=== PATIENT | female | born 1935 | race Hispanic/Latino ===

== ENCOUNTER 2020-01-13 10:35 | Inpatient (IN) | payer OTHER ==
[~2020-01-13] VITALS: Ht 157.5 cm; Wt 56.4 kg
[2020-01-13 11:13] LABS: BASOPHILS # (AUTO) 0.1 (0.0-0.1); BASOPHILS % 1.4 % (0.0-1.0); EOSINOPHILS # (AUTO) 0.4 (0.0-0.4); EOSINOPHILS % 6.6 % (0.0-6.0); HEMATOCRIT 32.2 % (34.2-44.1); LYMPHOCYTES # (AUTO) 1.9 (1.0-3.2); LYMPHOCYTES % 31.9 % (18.0-39.1); MEAN CORPUSCULAR HEMOGLOBIN 25.9 pg (28-32); MEAN CORPUSCULAR HGB CONC 31.1 g/dL (31-35); MEAN CORPUSCULAR VOLUME 83.4 fL (81-99); MONOCYTES # (AUTO) 0.4 (0.2-0.8); MONOCYTES % 6.8 % (4.4-11.3); NEUTROPHILS # (AUTO) 3.1 (2.1-6.9); PLATELET COUNT 309 x10e3/uL (140-360); RED BLOOD COUNT 3.86 x10e6/uL (3.6-5.1); RED CELL DISTRIBUTION WIDTH 16.2 % (11.7-14.4)
[2020-01-13 11:31] LABS: INR 0.96; PARTIAL THROMBOPLASTIN TIME 26.8 seconds (23.8-35.5); PROTHROMBIN TIME 13.3 seconds (11.9-14.5)
[2020-01-13 11:40] LABS: ALANINE AMINOTRANSFERASE 15 IU/L (0-55); ALBUMIN 4.2 g/dL (3.5-5.0); ALBUMIN/GLOBULIN RATIO 1.2 (0.8-2.0); ALKALINE PHOSPHATASE 118 IU/L (40-150); ANION GAP 15.2 mmol/L (8-16); BLOOD UREA NITROGEN 20 mg/dL (7-26); BUN/CREATININE RATIO 20 (6-25); CALCIUM 9.7 mg/dL (8.4-10.2); CARBON DIOXIDE 28 mmol/L (22-29); CHLORIDE 99 mmol/L (98-107); CREATINE KINASE 26 IU/L (29-168); CREATININE, SERUM 0.98 mg/dL (0.57-1.11); EST GLOMERULAR FILTRATION RATE 54 ML/MIN (60-); GLUCOSE 96 mg/dL (74-118); LIPASE 9 U/L (8-78); POTASSIUM 4.2 mmol/L (3.5-5.1); SODIUM 138 mmol/L (136-145)
[2020-01-13 11:57] LABS: CLARITY,URINE CLEAR (CLEAR); COLOR,URINE YELLOW (YELLOW); LEUKOCYTE ESTERASE ,URINE TRACE (NEGATIVE); NITRITE,URINE POSITIVE (NEGATIVE)
[2020-01-13 11:58] LABS: BILIRUBIN,URINE NEGATIVE (NEGATIVE); KETONES,URINE NEGATIVE (NEGATIVE); PROTEIN,URINE DIPSTICK TRACE (NEGATIVE); URINE UROBILINOGEN 0.2 mg/dL (0.2 - 1)
[2020-01-13] MEDS ORDERED: SODIUM CHLORIDE 0.9% 500ML 500 ML IV ONE (12:00)
[2020-01-13 12:10] LABS: BACTERIA,URINE MANY /HPF; EPITHELIAL CELLS,URINE FEW /LPF
[2020-01-13] MEDS ORDERED: CEFTRIAXONE SOD 1 GM VIAL IV ONE (12:30)
[2020-01-13] MEDS ORDERED: CEFTRIAXONE SOD 1 GM/NS 50 ML 50 ML IV ONE (12:45)
--- NOTE | 2020-01-13 13:40 | Diagnostic Imaging Report ---
Exam: Chest radiograph Clinical History: GI bleed Findings: The cardiomediastinal silhouette and lungs are normal. The regional skeleton and soft tissue are unremarkable. There is no evidence of pleural effusion or pneumothorax. Impression: No radiographic evidence of acute cardiopulmonary disease. Signed by: Dr. Roderick Leon MD on 01/13/2020 1:37 PM
--- NOTE | 2020-01-13 13:51 | Diagnostic Imaging Report ---
Exam: CT abdomen and pelvis Clinical history: Abdominal pain Technique: Helical images of the abdomen and pelvis were obtained after IV contrast demonstration DOSE REDUCTION: The exams was performed according to the departmental dose-optimization program which includes automated exposure control, adjustment of the mA and/or kV according to patient size and/or use of iterative reconstruction technique. Findings: The lung bases are clear. There is no evidence of pleural effusion. The cardiac size is within normal limits. A nonspecific 5 mm hypodense lesion is noted in the right hepatic lobe adjacent to the gallbladder. This too small to be characterized and may represent a cyst. The spleen, pancreas, adrenal glands, and left kidney are unremarkable. A 1.4 cm hypodense lesion is seen in the interpolar region right kidney most compatible with a cyst. The small and large bowels are normal in caliber without evidence of obstruction. The colon is mildly prominent containing air. The appendix is normal in caliber. The bladder and uterus are unremarkable. The ovaries are not well seen. There is no evidence of lymphadenopathy or free fluid. The aorta and IVC are normal in caliber. Degenerative changes are noted throughout the lumbar spine. Impression: 1. Small right renal cyst. 2. Subcentimeter hypodense lesion in the liver, too small to be characterized. 3. Degenerative changes of the lumbar spine. 4. Mildly prominent air-filled colon without evidence of obstruction. Signed by: Dr. Roderick Leon MD on 01/13/2020 1:49 PM
[2020-01-13] MEDS ORDERED: ONDANSETRON HCL INJ 2MG/ML 2ML 2 MG/ML VIAL IV PRN (14:30)
[2020-01-13] MEDS ORDERED: IOPAMIDOL 370 MG/ML 200 ML INFUS..BTL INJ ONE (14:49)
[2020-01-13] MEDS ORDERED: SODIUM CHLORIDE 0.9% 50ML 50 ML ONE (14:49)
--- OUTSIDE RECORDS SUMMARY | 2020-01-13 15:14 | XMS REPORT ---
Author Author [facility] Address Unknown Phone Unavailable Care Team Providers Care Die Cleaner Name Role Phone Shantelle STALLWORTH Unavailable Unavailable Problems This patient has no known problems. Allergies, Adverse Reactions, Alerts This patient has no known allergies or adverse reactions. Medications This patient has no known medications. Encounters Start Date/Time End Date/Time Encounter Type Admission Type Attending Clinicians Care Facility Care Department Encounter ID 2019-05-16 19:30:00 2019-05-16 19:30:00 Emergency E [facility] [id number] Results Test Description Test Time Test Comments Text Results Atomic Results Result Comments CT ABDOMEN/PELVIS W 2020-01-13 13:42:00 [place] [address] Patient Name: SHUN KYLE V MR #: [id number] : 1935 Age/Sex: 84/F Req #: [id number] Adm Physician: Ordered by: CHRISTINA NI NP Report #: [id number] Location: ER Room/Bed: Procedure: [id number] CT/CT ABDOMEN/PELVIS W Exam Date: 01/13/20 Exam Time: 1250 REPORT STATUS: Signed Exam: CT abdomen and pelvis Clinical history: Abd ominal pain Technique: Helical images of the abdomen and pelvis were obtained after IV contrast demonstration DOSE REDUCTION: The exams was performed according to the departmental dose-optimization program which includes automated exposure control, adjustment of the mA and/or kV according to patient size and/or use of iterative reconstruction technique. Findings: The lung bases are clear. There is no evidence of pleural effusion. The cardiac size is within normal limits. A nonspecific 5 mm hypodense lesion is noted in the right hepatic lobe adjacent to the gallbladder. This too small to be characterized and may represent a cyst. The spleen, pancreas, adrenal glands, and left kidney are unremarkable. A 1.4 cm hypodense lesion is seen in the interpolar region right kidney most compatible with a cyst. The small and large bowels are normal in caliber without evidence of obstruction. The colon is mildly prominent containing air. The appendix is normal in caliber. The bladder and uterus are unremarkable. The ovaries are not well seen. There is no evidence of lymphadenopathy or free fluid. The aorta and IVC are normal in caliber. Degenerative changes are noted throughout the lumbar spine. Impression: 1. Small right renal cyst. 2. Subcentimeter hypodense lesion in the liver, too small to be characterized. 3. Degenerative changes of the lumbar spine. 4. Mildly prominent air-filled colon without evidence of obstruction. Signed by: Dr. Roderick Leon MD on 01/13/2020 1:49 PM Dictated By: JAMES LEON MD 1349 Transcribed By: DERECK on 01/13/20 1349 COPY TO: CHRISTINA NI NP CHEST SINGLE (PORTABLE) 2020-01-13 13:37:00 [place] [address] Patient Name: SHUN KYLE V MR #: [id number] : 1935 Age/Sex: 84/F Req #: [id number] Adm Physician: Ordered by: CHRISTINA NI NP Report #: [id number] Location: ER Room/Bed: Procedure: [id number] DX/CHEST SINGLE (PORTABLE) Exam Date: 01/13/20 Exam Time: 1250 REPORT STATUS: Signed Exam: Chest radiograph Clinical History: GI bleed Findings: The cardiomediastinal silhouette and lungs are normal. The regional skeleton and soft tissue are unremarkable. There is no evidence of pleural effusion or pneumothorax. Impression: No radiographic evidence of acute cardiopulmonary disease. Signed by: Dr. Roderick Leon MD on 01/13/2020 1:37 PM Dictated By: JAMES LEON MD 1331 Transcribed By: DERECK on 01/13/20 1337 COPY TO: CHRISTINA NI NP
[2020-01-13] MEDS: MEROPENEM 1GM 100 ML IV SCH ×2 (15:42→22:30)
[2020-01-13] MEDS: SODIUM CHLORIDE FLUSH 10 ML SYR INJ PRN (15:42)
--- NOTE | 2020-01-13 19:31 | NUR ---
Patient arrived to unit from ER with niece at side. Oriented to room and environment. Call light within reach. Bed alarm on and active. Will continue to monitor closely.
[2020-01-13 19:35] VITALS: BP 174/73
[2020-01-13 20:00] VITALS: BP 174/73
[2020-01-13 20:28] VITALS: BP 174/73
[2020-01-13] MEDS ORDERED: MEROPENEM 1GM 100 ML IV SCH (22:00)
[2020-01-13] MEDS ORDERED: SODIUM CHLORIDE 0.9% 250ML 250 ML ONE (22:41)
[2020-01-14] VITALS (8 sets, daily range): BP systolic 126–160; BP diastolic 62–72
--- NOTE | 2020-01-14 03:19 | NUR ---
Patient pulled IV out. Area cleaned and gaze and tape applied. Tolerated well.
[2020-01-14] MEDS ORDERED: METFORMIN HCL500 MG PO (04:04)
[2020-01-14] MEDS ORDERED: FERROUS SULFAT325 MG PO (04:04)
[2020-01-14] MEDS ORDERED: ATORVASTATIN CA10 MG PO (04:04)
[2020-01-14] MEDS ORDERED: LISINOPRIL2.5 MG PO (04:04)
[2020-01-14] MEDS ORDERED: PROAIR HFA INH8.5 GM IH (04:04)
[2020-01-14] MEDS ORDERED: INCRUSE ELLIPTA IH (04:04)
[2020-01-14 06:30] LABS: BASOPHILS # (AUTO) 0.1 (0.0-0.1); BASOPHILS % 0.9 % (0.0-1.0); EOSINOPHILS # (AUTO) 0.4 (0.0-0.4); EOSINOPHILS % 6.5 % (0.0-6.0); HEMATOCRIT 27.5 % (34.2-44.1); HEMOGLOBIN 8.5 g/dL (12.0-16.0); LYMPHOCYTES # (AUTO) 1.3 (1.0-3.2); LYMPHOCYTES % 19.8 % (18.0-39.1); MEAN CORPUSCULAR HEMOGLOBIN 25.8 pg (28-32); MEAN CORPUSCULAR HGB CONC 30.9 g/dL (31-35); MEAN CORPUSCULAR VOLUME 83.3 fL (81-99); MONOCYTES # (AUTO) 0.6 (0.2-0.8); MONOCYTES % 8.7 % (4.4-11.3); NEUTROPHILS # (AUTO) 4.1 (2.1-6.9); NEUTROPHILS % 63.9 % (38.7-80.0); PLATELET COUNT 266 x10e3/uL (140-360); RED CELL DISTRIBUTION WIDTH 16.3 % (11.7-14.4)
[2020-01-14] MEDS: MEROPENEM 1GM 100 ML IV SCH ×3 (06:37→22:14)
[2020-01-14 06:48] LABS: ALANINE AMINOTRANSFERASE 13 IU/L (0-55); ALBUMIN 3.6 g/dL (3.5-5.0); ALBUMIN/GLOBULIN RATIO 1.3 (0.8-2.0); ALKALINE PHOSPHATASE 96 IU/L (40-150); ANION GAP 13.9 mmol/L (8-16); BLOOD UREA NITROGEN 21 mg/dL (7-26); BUN/CREATININE RATIO 28 (6-25); CALCIUM 8.9 mg/dL (8.4-10.2); CARBON DIOXIDE 26 mmol/L (22-29); CHLORIDE 103 mmol/L (98-107); CREATININE, SERUM 0.76 mg/dL (0.57-1.11); EST GLOMERULAR FILTRATION RATE > 60 ML/MIN (60-); GLUCOSE 73 mg/dL (74-118); POTASSIUM 3.9 mmol/L (3.5-5.1); SODIUM 139 mmol/L (136-145)
--- NOTE | 2020-01-14 07:10 | NUR ---
RCD PT AT BED PT IS ALERT AND ORIENTED RESTING ON BED IV PATENT BY SALINE FLUSH BED LOW AND LOCKED CALL LIGHT IN REACH
--- NOTE | 2020-01-14 07:10 | NUR ---
Bedside report and rounds completed with oncoming nurse. Patient in bed resting, call light within reach. No issues or concerns noted.
[2020-01-14 10:40] LABS: THYROID STIMULATING HORMONE 0.788 uIU/mL (0.350-4.940)
--- NOTE | 2020-01-14 14:45 | NUR ---
Visit made by the Spiritual Care Department Pastoral Visitor, Tiana Womack. PV provided ashes for Chuck Sunday. Pastoral Visitor informed pt/family of the scope of Block Sorter Services and availability. KAN BELLA Handle Lathe Operator Spiritual Care Department O: [phone]
--- NOTE | 2020-01-14 18:43 | NUR ---
PT RESTING ON BED BED SIDE REPORT GIVEN TO ONCOMING NURSE
--- NOTE | 2020-01-14 19:30 | NUR ---
REPORT RECEIVED FROM DAY RN. PT ALERT AND ORIENTED X2. RESPIRATIONS EVEN AND UNLABORED. SL 22G IN RT WRIST- FLUSHES EASILY AND SITE HEALTHY. IMPULSIVE AND WILL GET UP TO GO TO BATHROOM WITHOUT CALLING.UP TO BATHROOM WITH ONE ASSIST AND WALKER. UNSTEADY AT TIMES- NEEDS ONE ASSIST. CALL LIGHT WITHIN REACH. BED IN LOW POSITION. BRAKE ON. NONSKID SOCKS ON. NEED STOOL FOR OCCULT BLOOD--NO BM THIS SHIFT.REMAINS ON CONTACT ISOLATION FOR ESBL.
--- NOTE | 2020-01-14 20:39 | Consultation ---
DATE OF CONSULTATION: 01/14/2020 Urology Consultation REASON FOR CONSULTATION: Urinary tract infection that is complicated. HISTORY OF PRESENT ILLNESS: Cristo Sanches is an 84-year-old woman with urinary tract infection. She was admitted with altered mental status and a complicated urinary tract infection. She showed ESBL urinary tract infection. The patient was wearing a diaper, which was confused when she was admitted. She apparently has urinary incontinence and is wearing a diaper at the present time. The patient denies hematuria, dysuria, and urolithiasis. Denies ever seeing a urologist. PAST MEDICAL AND SURGICAL HISTORY: 1. Hypertension. 2. Diabetes mellitus. 3. Asthma. 4. Urinary tract infections. 5. Hyperlipidemia. 6. Macular degeneration. CURRENT MEDICATIONS: Please refer to the MAR. ALLERGIES: NONE KNOWN. SOCIAL HISTORY: The patient quit smoking three years ago. She denies smoking and ethanol drug use. 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 FAMILY HISTORY: Noncontributory to the active urological problems. REVIEW OF SYSTEMS: Discussed as above history of present illness and past medical history, otherwise negative for all systems. PHYSICAL EXAMINATION: GENERAL: Elderly woman, lying in bed, in no apparent distress. She is currently afebrile. VITAL SIGNS: Vital signs are currently stable. ABDOMEN: Soft, nondistended, nontender without costovertebral angle tenderness. Kidneys not palpable without hepatosplenomegaly. No obvious evidence of hernia. GENITOURINARY: The patient is incontinent into a diaper. For the remaining physical examination systems, please refer to the admission history and physical as well as ERT sheet. LABORATORY STUDIES: CT scan of the abdomen and pelvis showed a small right renal cyst, but no other urological abnormalities. Urine culture showing gram-negative rods and sensitivities are pending. White blood cell count is 6450, hemoglobin 8.5, platelets are 266,000. The patient's creatinine is 0.76. Urinalysis significant for 6-10 rbcs, 6-10 wbcs. ASSESSMENT: 1. Anemia. 2. Urinary tract infections. 3. Microhematuria. 4. Right renal cyst. 5. Urinary incontinence. PLAN: 1. Await urine culture and sensitivity, and adjust antibiotics accordingly. 2. Once the patient is on culture-specific antibiotics and ready for discharge, we will plan to follow the patient up in the office for urodynamic test. 3. Ongoing urological followup is recommended on a long-term basis. 4. Cystoscopic examination may be in the patient's future as well. Thank you much for involving us in care of your patient. We will be happy to follow her along with you as well as an outpatient. Zac MD JOSE Randolph/MERY /[id number]
[2020-01-14] MEDS: SODIUM CHLORIDE FLUSH 10 ML SYR INJ PRN (22:14)
[2020-01-15] VITALS (8 sets, daily range): BP systolic 128–150; BP diastolic 59–67
[2020-01-15 05:58] LABS: BASOPHILS # (AUTO) 0.1 (0.0-0.1); BASOPHILS % 1.2 % (0.0-1.0); EOSINOPHILS # (AUTO) 0.5 (0.0-0.4); HEMATOCRIT 27.6 % (34.2-44.1); HEMOGLOBIN 8.4 g/dL (12.0-16.0); LYMPHOCYTES # (AUTO) 1.4 (1.0-3.2); LYMPHOCYTES % 28.5 % (18.0-39.1); MEAN CORPUSCULAR HEMOGLOBIN 25.1 pg (28-32); MEAN CORPUSCULAR HGB CONC 30.4 g/dL (31-35); MEAN CORPUSCULAR VOLUME 82.6 fL (81-99); MONOCYTES # (AUTO) 0.6 (0.2-0.8); MONOCYTES % 11.4 % (4.4-11.3); NEUTROPHILS # (AUTO) 2.3 (2.1-6.9); NEUTROPHILS % 48.7 % (38.7-80.0); PLATELET COUNT 262 x10e3/uL (140-360); RED BLOOD COUNT 3.34 x10e6/uL (3.6-5.1); RED CELL DISTRIBUTION WIDTH 16.2 % (11.7-14.4)
[2020-01-15] MEDS: MEROPENEM 1GM 100 ML IV SCH ×3 (05:59→22:42)
[2020-01-15] MEDS: SODIUM CHLORIDE FLUSH 10 ML SYR INJ PRN (06:00)
[2020-01-15 06:15] LABS: BLOOD UREA NITROGEN 17 mg/dL (7-26); BUN/CREATININE RATIO 23 (6-25); CALCIUM 9.4 mg/dL (8.4-10.2); CARBON DIOXIDE 30 mmol/L (22-29); CHLORIDE 103 mmol/L (98-107); CREATININE, SERUM 0.75 mg/dL (0.57-1.11); EST GLOMERULAR FILTRATION RATE > 60 ML/MIN (60-); GLUCOSE 108 mg/dL (74-118); SODIUM 140 mmol/L (136-145)
--- NOTE | 2020-01-15 06:30 | NUR ---
RT WRIST IV PAINFUL WHEN FLUSH. IV D/C WITH CATHETER INTACT. PRESSURE DRESSING TO RT WRIST - NO BLEEDING NOTED. NEW IV 22G STARTED IN RT FOREARM. PT TOLERATED PROCEDURE WELL.
--- NOTE | 2020-01-15 07:10 | NUR ---
RCD PT AT BED PT IS ALERT AND ORIENTED RESTING ON BED IV PATENT BY SALINE FLUSH BED LOW AND LOCKED CALL LIGHT IN REACH
--- NOTE | 2020-01-15 16:50 | Diagnostic Imaging Report ---
EXAMINATION: CHEST XRAY LINE PLACEMENT INDICATION: Line placement COMPARISON: Chest radiograph 01/13/2020 FINDINGS: LINES/TUBES:Interval placement of right PICC line, terminating in the superior vena cava. LUNGS:The lungs are moderately inflated. No focal consolidation or pulmonary edema. PLEURA:No pleural effusion or pneumothorax. MEDIASTINUM:The cardiomediastinal silhouette appears unchanged in size and shape. Atherosclerotic calcifications of the thoracic aorta. BONES/SOFT TISSUES:No acute osseous injury. ABDOMEN:No free air under the diaphragm. IMPRESSION: Right PICC line terminates in the superior vena cava. Otherwise, no significant interval change. Signed by: Keysha Perales MD on 01/15/2020 4:48 PM
--- NOTE | 2020-01-15 18:54 | NUR ---
REPORT RECEIVED FROM DAY RN. PT ALERT AND ORIENTED X2. COOPERATIVE WITH CARE. RESPIRATIONS EVEN AND UNLABORED.UP TO BATHROOM WITH ONE ASSIST. PICC LINE IN RT UPPER ARM- DOUBLE LUMEN INTACT. RT SL 22G INTACT IN RT FOREARM. PT PULLING AT SL IN RT FOREARM - BOTH WRAPPED WITH KERLIX. CALL LIGHT WITHIN REACH. BED IN LOW POSITION. PT REPORT SHE DID NOT GET DINNER. GIVEN SANDWICH AND JUICE.BED BRAKE ON. NON SKID SOCKS ON.
--- NOTE | 2020-01-15 18:54 | NUR ---
PT RESTING ON BED BED SIDE REPORT GIVEN TO ONCOMING NURSE
--- NOTE | 2020-01-15 21:51 | Consultation ---
DATE OF CONSULTATION: REASON FOR CONSULTATION: UTI. HISTORY OF PRESENT ILLNESS: Ms. Sanches is an 84-year-old female, who has history of dementia, hypertension, diabetes mellitus, asthma, recurrent UTI. She apparently has seen her urologist a culture was done showed ESBL. She was admitted with altered mental status. There was concern she may also have fever. The patient does not really provide any meaningful information. History was taken mainly for chart. REVIEW OF SYSTEMS: At the present time, she denies any but I am not so sure if she is a good historian. There is no family. LABORATORY DATA: Reviewed white count is 4.8, hemoglobin 8.4, her sodium 140, potassium 4.0, creatinine of less than 0.75. MEDICATION LIST: Also reviewed. She is on meropenem 1 g every eight. Her laboratory data reviewed. Chart reviewed. PHYSICAL EXAMINATION: GENERAL: She is currently alert, oriented, does not seem to be in acute distress. VITAL SIGNS: Stable, currently afebrile. HEENT: She is not icteric. NECK: Supple. CHEST: Clear. HEART: S1, S2. No S3, S4, or murmur. ABDOMEN: Soft. Bowel sounds present. No tenderness. EXTREMITIES: No edema. SKIN: No rash. IMPRESSION: UTI, bacteriuria multidrug resistant pathogen. we will put the patient on meropenem. Await cultures. Plan 14 days of meropenem 1 g every 8 outside the hospital. Further recommendations to follow. Discussed with the medical team. MD LG Fuller/MERY /[id number]
[2020-01-16] VITALS (7 sets, daily range): BP systolic 135–168; BP diastolic 62–78
[2020-01-16] MEDS: MEROPENEM 1GM 100 ML IV SCH ×3 (06:00→21:18)
[2020-01-16] MEDS: CYANOCOBALAMIN INJ 1,000 MCG/ML VIAL IM SCH (10:00)
[2020-01-17] VITALS (9 sets, daily range): BP systolic 138–171; BP diastolic 63–77
[2020-01-17] MEDS: MEROPENEM 1GM 100 ML IV SCH ×3 (06:02→21:30)
--- NOTE | 2020-01-17 06:38 | NUR ---
called and spoke to dr Rodriguez made him aware pt blood pressure is 171/66, and pt does not have any bp med. no new order obtained.
--- NOTE | 2020-01-17 07:05 | NUR ---
RCD PT AT BED PT IS ALERT AND CONFUSED RESTING ON BED IV PATENT BY SALINE FLUSH BED LOW AND LOCKED BED ALARM CONDUIT MECHANIC LIGHT IN REACH
[2020-01-17] MEDS: CYANOCOBALAMIN INJ 1,000 MCG/ML VIAL IM SCH (09:00)
[2020-01-17] MEDS ORDERED: DEXTROSE 50% SYRINGE 50 ML IV PRN (09:30)
[2020-01-17] MEDS ORDERED: ALBUTEROL/IPRATROPIUM 3 ML NEB NEB PRN (09:30)
[2020-01-17] MEDS: INSULIN LISPRO 100 UNIT/1 ML 3ML VIAL SQ SCH ×3 (11:30→21:25)
--- NOTE | 2020-01-17 11:54 | NUR ---
SEE ORDER TO SET UP HOME IV ABX, CALLED AND LET NURSE MICHELINE KNOW SHE NEEDS TO GET CORRECT ORDER FOR IT TO BE COMPLETED.
[2020-01-17] MEDS: LISINOPRIL 2.5 MG TAB PO SCH (12:30)
--- NOTE | 2020-01-17 12:50 | NUR ---
AC TO LOT WORKER PAGED AND TALKED DR GARCIA REGARDING HOME ANTIBIOTIC GOT NEW ORDER
[2020-01-17] MEDS: METFORMIN HCL 500 MG TAB PO SCH (16:21)
--- NOTE | 2020-01-17 19:06 | NUR ---
PT RESTING ON BED BED SIDE REPORT GIVEN TO ONCOMING NURSE
[2020-01-17] MEDS: ATORVASTATIN 10 MG TAB PO SCH (21:30)
[2020-01-18] VITALS (8 sets, daily range): BP systolic 120–165; BP diastolic 60–73
[2020-01-18] MEDS: MEROPENEM 1GM 100 ML IV SCH ×3 (05:17→21:29)
--- NOTE | 2020-01-18 07:00 | NUR ---
BEDSIDE SHIFT REPORT FROM HUMIDIFIER MAINTENANCE WORKER RN. PT DENIES NEEDS AT THIS TIME.
[2020-01-18 07:37] LABS: BASOPHILS # (AUTO) 0.1 (0.0-0.1); BASOPHILS % 1.1 % (0.0-1.0); EOSINOPHILS # (AUTO) 0.4 (0.0-0.4); EOSINOPHILS % 6.2 % (0.0-6.0); HEMATOCRIT 27.2 % (34.2-44.1); HEMOGLOBIN 8.6 g/dL (12.0-16.0); LYMPHOCYTES # (AUTO) 1.5 (1.0-3.2); LYMPHOCYTES % 24.2 % (18.0-39.1); MEAN CORPUSCULAR HGB CONC 31.6 g/dL (31-35); MEAN CORPUSCULAR VOLUME 82.2 fL (81-99); MONOCYTES # (AUTO) 0.5 (0.2-0.8); MONOCYTES % 7.6 % (4.4-11.3); NEUTROPHILS # (AUTO) 3.8 (2.1-6.9); NEUTROPHILS % 60.7 % (38.7-80.0); PLATELET COUNT 261 x10e3/uL (140-360); RED BLOOD COUNT 3.31 x10e6/uL (3.6-5.1); RED CELL DISTRIBUTION WIDTH 15.9 % (11.7-14.4)
[2020-01-18] MEDS: INSULIN LISPRO 100 UNIT/1 ML 3ML VIAL SQ SCH ×4 (07:45→21:45)
[2020-01-18 07:54] LABS: ANION GAP 11.2 mmol/L (8-16); BLOOD UREA NITROGEN 21 mg/dL (7-26); BUN/CREATININE RATIO 28 (6-25); CARBON DIOXIDE 27 mmol/L (22-29); CHLORIDE 102 mmol/L (98-107); CREATININE, SERUM 0.75 mg/dL (0.57-1.11); EST GLOMERULAR FILTRATION RATE > 60 ML/MIN (60-); GLUCOSE 121 mg/dL (74-118); POTASSIUM 4.2 mmol/L (3.5-5.1); SODIUM 136 mmol/L (136-145)
[2020-01-18] MEDS: CYANOCOBALAMIN INJ 1,000 MCG/ML VIAL IM SCH (08:40)
[2020-01-18] MEDS: METFORMIN HCL 500 MG TAB PO SCH ×2 (08:40→17:41)
[2020-01-18] MEDS: LISINOPRIL 2.5 MG TAB PO SCH (08:41)
[2020-01-18] MEDS ORDERED: LISINOPRIL 2.5 MG TAB PO SCH (09:00)
--- NOTE | 2020-01-18 10:00 | NUR ---
TALKED TO FLOR IN CASE MANAGEMENT ABOUT PT'S STATUS OF HAVING HOME HEALTH SET UP FOR ANTIBIOTICS. THIS NURSE WAS TOLD THAT IT WOULD NOT BE ABLE TO BE DONE UNTIL SUNDAY. SHE STATED THAT THE ORDER WAS PLACED TOO LATE ON SUN. I FORWARD THIS INFORMATION TO DR. GODWIN.
--- NOTE | 2020-01-18 19:05 | NUR ---
Visit made by the Spiritual Care Department Pastoral Visitor, Raimundo Spann. PV provided pastoral presence, communion, hospitality, and supportive listening. Pastoral Visitor informed pt/family of the scope of Plastic Parts Designer Services and availability. KAN BELLA Instrumentation And Control Technician Spiritual Care Department O: [phone]
[2020-01-18] MEDS: ATORVASTATIN 10 MG TAB PO SCH (21:29)
[2020-01-19] VITALS (7 sets, daily range): BP systolic 123–193; BP diastolic 61–81
[2020-01-19] MEDS: MEROPENEM 1GM 100 ML IV SCH ×3 (05:11→22:00)
--- NOTE | 2020-01-19 07:04 | NUR ---
BEDSIDE SHIFT REPORT FROM ECONOMETRICIAN RN. PT DENIES NEEDS AT THIS TIME.
[2020-01-19] MEDS: INSULIN LISPRO 100 UNIT/1 ML 3ML VIAL SQ SCH ×4 (07:30→21:00)
[2020-01-19] MEDS: METFORMIN HCL 500 MG TAB PO SCH ×2 (08:29→17:28)
[2020-01-19] MEDS: CYANOCOBALAMIN INJ 1,000 MCG/ML VIAL IM SCH (08:29)
[2020-01-19] MEDS: LISINOPRIL 2.5 MG TAB PO SCH (08:30)
--- NOTE | 2020-01-19 10:03 | NUR ---
Choice letter on front of chart from the weekend for [facility] for IV abx. IV abx order and clinical faxed to [facility]. / . Carmen Ya with [facility] was informed of referral.
--- NOTE | 2020-01-19 13:58 | NUR ---
Informed Dr. Rodriguez that per PT, pt is declining with mobility and is a significant fall risk now due to knee buckling. They are recommending SNF for discharge. He gave order for SNF eval. Order placed in system. Addendum: 01/19/20 at 1427 by Rajani Medeiros CM CALVIN called [facility] and spoke with Lora. Asked her to put referral on hold for now, due to pt needing SNF.
--- NOTE | 2020-01-19 14:16 | NUR ---
SPOKE WITH DAUGHTER IN LAW EMMIE SHE STATES CHOICE IS FOR [facility] IN [place]. FILED IN CHART AND SENT CLINICALS
--- NOTE | 2020-01-19 15:35 | Progress Note ---
DATE: SUBJECTIVE: Ms. Sanches, who is alert, but confused. Does not seem to be in acute distress, comfortable. REVIEW OF SYSTEMS: Could not be obtained, but per nurse, patient has been stable. PHYSICAL EXAMINATION: GENERAL: She is currently alert, oriented, does not seem to be in acute distress. VITAL SIGNS: Stable, afebrile. HEENT: She is not icteric. NECK: Supple. CHEST: Clear. HEART: S1 and S2. No S3, S4, or murmur. ABDOMEN: Soft. IMPRESSION: 1. Urinary tract infection with resistant pathogen present on admission, Klebsiella pneumoniae extended-spectrum beta-lactamases on meropenem. There are negative blood cultures, so probably bacteria with left kidney infection, may be just cystitis. Continue meropenem as ordered. Continue IV support. Plan is to continue with antibiotic while she is in the hospital. Probably discharge home soon with Hiprex 1 p.o. b.i.d. Follow up as outpatient. Discussed with the family about colonization and bacteriuria. 2. Dementia, stable. 3. We will follow. MD LG Fuller/MERY /[id number]
--- NOTE | 2020-01-19 15:40 | NUR ---
Nutrition Screen Note RD Recommendation for Physician: -Continue current diet Plan of Care: RD following, monitoring for tolerance and adequacy Nutrition reason for involvement: LOS Primary Diagnose(s): UTI, AMS PMH: HTN, DM, UTI, HLD, dementia Ht: 62 in Wt: 124.38 lb BMI: 22.7 kg/m2 IBW: [address] Assessment: (01/18) 84 YOF admitted for UTI and AMS, seen today for LOS. Pt with hx of dementia, unable to obtain information from pt and no family present at bedside. Pt appears well nourished, age related changes noted. Per flow sheets pt eating 75-100% of meals, no nutritional issues per RN. RN reports no BM this shift, last documented BM 01/16. Chart reviewed. Labs and meds reviewed. Will continue to monitor. Current Diet: Cardiac Malnutrition Evaluation (01/19/20) The patient does not meet criteria for a specified degree of malnutrition at this time. Will re-evaluate at follow-up as appropriate. Diet Education Needs Assessment: Diet education not indicated. Diet tolerance: tolerating po Nutrition Care Level: low Signed: Maryjo Allen RD, LD, [facility]
[2020-01-19] MEDS ORDERED: SODIUM CHLORIDE 0.9% 250ML 250 ML ONE (20:51)
[2020-01-19] MEDS: ATORVASTATIN 10 MG TAB PO SCH (20:54)
[2020-01-20] VITALS (7 sets, daily range): BP systolic 117–161; BP diastolic 59–77
[2020-01-20] MEDS: MEROPENEM 1GM 100 ML IV SCH ×3 (05:28→21:29)
--- NOTE | 2020-01-20 07:00 | NUR ---
BEDSIDE SHIFT REPORT FROM AUTOMOBILE ENGINE ASSEMBLER RN. PT DENIES NEEDS AT THIS TIME.
[2020-01-20] MEDS: INSULIN LISPRO 100 UNIT/1 ML 3ML VIAL SQ SCH ×4 (07:30→21:00)
[2020-01-20] MEDS: METFORMIN HCL 500 MG TAB PO SCH ×2 (09:09→17:44)
[2020-01-20] MEDS: CYANOCOBALAMIN INJ 1,000 MCG/ML VIAL IM SCH (09:09)
[2020-01-20] MEDS: LISINOPRIL 2.5 MG TAB PO SCH (09:10)
[2020-01-20] MEDS ORDERED: ONDANSETRON HCL 4 MG ORAL DISINTEGRATING TAB PO PRN (15:00)
[2020-01-20] MEDS: ATORVASTATIN 10 MG TAB PO SCH (21:28)
--- NOTE | 2020-01-20 21:40 | NUR ---
patient pulled picc line, new iv started for abx.
[2020-01-21] VITALS (8 sets, daily range): BP systolic 128–156; BP diastolic 63–84
[2020-01-21] MEDS: MEROPENEM 1GM 100 ML IV SCH ×2 (05:58→14:14)
--- NOTE | 2020-01-21 07:06 | NUR ---
BEDSIDE SHIFT REPORT RECEIVED FROM POWER GENERATION PLANT OPERATOR RN, PT AWAKE, LYING IN BED, SEMI-FOWLERS. NO SIGNS OF DISTRESS. NO COMPLAINTS AT THIS TIME. IV PATENT, INTACT. WILL CONTINUE TO MONITOR.
--- NOTE | 2020-01-21 07:15 | NUR ---
paged dr ricks for new order for picc line.
[2020-01-21] MEDS: INSULIN LISPRO 100 UNIT/1 ML 3ML VIAL SQ SCH ×4 (07:30→21:00)
--- NOTE | 2020-01-21 07:39 | NUR ---
CALL BACK RECEIVED FROM DR. GARCIA WHO STATES OKAY TO ORDER PLACEMENT OF PICC LINE.
--- NOTE | 2020-01-21 08:45 | NUR ---
DENIED SNF PEER TO PEER OFFERED, DR GODWIN STATES PT IS BASELINE AND WILL GO HOME ON IV ABX
--- NOTE | 2020-01-21 08:52 | NUR ---
CALVIN called and spoke with Lexy at [facility]. Informed her to continue with referral for IV abx. Informed her MD ready to dc today once everything is set up. She said had previously spoken with the pt's niece and she accepted copay. They will work on nursing part. Will call CM back once she has everything arranged. CALVIN called and left message for pt's niece Anisha [phone]. Awaiting callback.
--- NOTE | 2020-01-21 09:21 | NUR ---
Received callback from pt's niece Anisha. Updated her on discharge plan, informed her that we received insurance denial for SNF. MD's plan is to go home with IV abx. Niece is agreeable. States she will be at the hospital later today.
[2020-01-21] MEDS: METFORMIN HCL 500 MG TAB PO SCH ×2 (11:12→17:59)
[2020-01-21] MEDS: CYANOCOBALAMIN INJ 1,000 MCG/ML VIAL IM SCH (11:12)
[2020-01-21] MEDS: LISINOPRIL 2.5 MG TAB PO SCH (11:25)
--- NOTE | 2020-01-21 13:04 | NUR ---
Received call from Loretta, nurse with [facility]. States she will come provide bedside teaching around 4-5pm. She will call pt's yana Lancaster and let her know. CM also placed call to pt's yana Lancaster and left a message. Awaiting callback.
--- NOTE | 2020-01-21 16:19 | NUR ---
Loretta with [facility] said HH is being set up with [facility], but they are needing HH orders. CALVIN called and spoke with bennettdeena Anisha Helton [phone]. She is agreeable with home health with [facility]. Choice letter placed in front of chart. She states she's on her way to the hospital now for IV abx teaching with [facility]. IMM letter discussed. She verbalized understanding. Signed copy placed in chart. Copy to pt's bedside. HH order faxed to [facility] at [phone] / P [phone] Anticipated start of service 01/22/20
--- NOTE | 2020-01-21 19:05 | NUR ---
Received patient in bed with eyes open. AAOx1 self. Resp even and unlabored. No pain or discomfort noted. Call light in reach. Bed in low and locked position.
--- NOTE | 2020-01-21 20:35 | Diagnostic Imaging Report ---
EXAMINATION: CHEST XRAY LINE PLACEMENT INDICATION: PICC LINE PLACEMENT COMPARISON: 01/15/2020 FINDINGS: AP view TUBES and LINES: Right PICC line has been removed and there is a new left-sided PICC line terminates in the superior vena cava. LUNGS: Lungs are well inflated. There is mild prominence of the central pulmonary vasculature, consistent with pulmonary venous congestion. PLEURA: No pleural effusion or pneumothorax. HEART AND MEDIASTINUM: Cardiac size is mildly enlarged. BONES AND SOFT TISSUES: No acute osseous lesion. Soft tissues are unremarkable. UPPER ABDOMEN: No free air under the diaphragm. IMPRESSION: Mild cardiomegaly and pulmonary venous congestion. Signed by: Juan Harris MD on 01/21/2020 8:32 PM
[2020-01-21] MEDS: ATORVASTATIN 10 MG TAB PO SCH (21:27)
[2020-01-22] VITALS: BP 124/57
[2020-01-22] MEDS: MEROPENEM 1GM 100 ML IV SCH ×3 (03:59→14:02)
[2020-01-22 04:00] VITALS: BP 130/79
[2020-01-22 08:13] VITALS: BP 130/79
[2020-01-22 08:44] VITALS: BP 149/80
[2020-01-22] MEDS: INSULIN LISPRO 100 UNIT/1 ML 3ML VIAL SQ SCH ×2 (08:49→12:50)
[2020-01-22] MEDS: METFORMIN HCL 500 MG TAB PO SCH (09:54)
[2020-01-22] MEDS: LISINOPRIL 2.5 MG TAB PO SCH (09:54)
--- NOTE | 2020-01-22 11:35 | NUR ---
ASSESSMENT: Spiritual concern Pt's niece requested visit between hvac design mechanical engineer & pt. Pt feels abandoned. Pt states, "I wish I could go to sleep and not wake up." Intervention: Provided unhurried empathic listening and calming presence. Followed up w/ pt's niece. Outcome: Pt & niece expressed appreciation for visit. KAN Garcialain Spiritual Care Department O: [phone]
[2020-01-22 12:26] VITALS: BP 159/78
--- NOTE | 2020-01-22 12:27 | NUR ---
CALVIN called and spoke to Kaylin at [place] this morning. [phone]. States if pt discharge home today, they will see pt tomorrow. PICC line was replaced yesterday evening. Loretta Suarez is on her way to hospital now to reenforce teaching to family with PICC line. Medications were delivered yesterday evening. SHAYLA Jones was updated.
--- NOTE | 2020-01-22 12:56 | NUR ---
Received call from Lori with [facility] [phone]. She just spoke with SHAYLA Jones and was updated on dc plan. Lori said they will come out this evening to admit pt and reinforce teaching with family.
--- NOTE | 2020-01-22 14:23 | NUR ---
Spoke with Dr. Montero. Pt only needs 1 more week of IV abx outpatient. New order faxed to [facility] [place] [place] at [phone]. Crystal with [facility] [place] [place] notified of new order.
--- NOTE | 2020-01-22 15:14 | NUR ---
pt's blood sugar 65; will give pt juice and recheck. pt awake, alert, sitting up in chair with daughter, speaking full sentences, no signs of distress noted. will continue to monitor.
[2020-01-22] MEDS ORDERED: MEROPENEM-1 GM/50 ML IV (16:02)
[2020-01-22 16:34] VITALS: BP 167/73
== END 2020-01-22 16:44 | disposition home or self-care (01) | DRG 690 ==
LOC: ER 10:35 → ERHOLD 14:19 → MED/SURG2 19:31
PROVIDERS: ADMIT Internal Medicine; ATTEND Internal Medicine
PROC: 02HV33Z Insertion of Infusion Device into Superior Vena Cava, Percutaneous Approach (ICD-10-PCS; principal; 2020-01-15)
PROC: B548ZZA Ultrasonography of Superior Vena Cava, Guidance (ICD-10-PCS; 2020-01-15)
DX: N30.01 Acute cystitis with hematuria (principal); Z16.12 Extended spectrum beta lactamase (ESBL) resistance; F03.90 Unspecified dementia, unspecified severity, without behavioral disturbance, psychotic disturbance, mood disturbance, and anxiety; B96.1 Klebsiella pneumoniae [K. pneumoniae] as the cause of diseases classified elsewhere; E78.5 Hyperlipidemia, unspecified; J45.909 Unspecified asthma, uncomplicated; Z87.891 Personal history of nicotine dependence; D64.9 Anemia, unspecified; N28.1 Cyst of kidney, acquired; R53.81 Other malaise; N39.46 Mixed incontinence; R11.0 Nausea; E11.65 Type 2 diabetes mellitus with hyperglycemia; Z79.84 Long term (current) use of oral hypoglycemic drugs
CPT/HCPCS: 36415; 36569; 71045; 74177; 74470; 80048; 80053; 81001; 82550; 82553; 82607; 82746; 82948; 83540; 83690; 83880; 84443; 84466; 84484; 85025; 85610; 85730; 87086; 87186; 93005; 97139; 99284; J0696; J2405; J3420; J7040; J7050; Q9967

== ENCOUNTER 2020-01-22 20:56 | Emergency (ER) | payer OTHER ==
[~2020-01-22] VITALS: Ht 157.5 cm; Wt 56.2 kg
[~2020-01-22 20:56] MED LIST: ATORVASTATIN CA10 MG PO; FERROUS SULFAT325 MG PO; INCRUSE ELLIPTA IH; LISINOPRIL2.5 MG PO; MEROPENEM-1 GM/50 ML IV; METFORMIN HCL500 MG PO; PROAIR HFA INH8.5 GM IH
[2020-01-22 22:56] LABS: INR 0.99; PARTIAL THROMBOPLASTIN TIME 30.8 seconds (23.8-35.5); PROTHROMBIN TIME 13.7 seconds (11.9-14.5)
[2020-01-22 23:02] LABS: ANION GAP 11.1 mmol/L (8-16); CALCIUM 9.5 mg/dL (8.4-10.2); CREATININE, SERUM 0.92 mg/dL (0.57-1.11); POTASSIUM 4.1 mmol/L (3.5-5.1)
[2020-01-23 07:55] VITALS: BP 147/52
--- NOTE | 2020-01-23 07:56 | Diagnostic Imaging Report ---
EXAMINATION: CHEST XRAY LINE PLACEMENT INDICATION: PICC placement, verify position COMPARISON: None FINDINGS: TUBES and LINES: New right upper extremity PICC, tip in the low SVC. . LUNGS: Normal lung volumes. Lungs are clear. Prominent central pulmonary vasculature. PLEURA: No pleural effusion or pneumothorax. HEART AND MEDIASTINUM: Cardiac size is borderline enlarged. There are atherosclerotic calcifications within the aorta. BONES AND SOFT TISSUES: Degenerative changes in the spine and shoulders. Soft tissues are unremarkable. UPPER ABDOMEN: No free air under the diaphragm. IMPRESSION: New right upper extremity PICC, tip in the low SVC. . Borderline cardiomegaly and pulmonary vascular congestion. Signed by: London Montano DO on 01/23/2020 7:54 AM
== END 2020-01-23 08:15 | disposition home or self-care (01) ==
LOC: ER 20:56
DX: Z45.2 Encounter for adjustment and management of vascular access device (principal); I10 Essential (primary) hypertension; F03.90 Unspecified dementia, unspecified severity, without behavioral disturbance, psychotic disturbance, mood disturbance, and anxiety; E11.9 Type 2 diabetes mellitus without complications; H35.30 Unspecified macular degeneration; E78.5 Hyperlipidemia, unspecified
CPT/HCPCS: 36415; 36569; 80048; 85610; 85730; 99284

== ENCOUNTER 2020-01-25 07:46 | Emergency (ER) | payer OTHER ==
[~2020-01-25] VITALS: Ht 157.5 cm; Wt 56.2 kg
[2020-01-25 08:05] VITALS: BP 182/80
[2020-01-25 08:27] LABS: BASOPHILS # (AUTO) 0.1 (0.0-0.1); BASOPHILS % 1.4 % (0.0-1.0); EOSINOPHILS # (AUTO) 0.7 (0.0-0.4); EOSINOPHILS % 9.5 % (0.0-6.0); HEMATOCRIT 30.7 % (34.2-44.1); HEMOGLOBIN 9.5 g/dL (12.0-16.0); LYMPHOCYTES # (AUTO) 1.5 (1.0-3.2); LYMPHOCYTES % 20.6 % (18.0-39.1); MEAN CORPUSCULAR HEMOGLOBIN 25.7 pg (28-32); MEAN CORPUSCULAR HGB CONC 30.9 g/dL (31-35); MONOCYTES # (AUTO) 0.5 (0.2-0.8); MONOCYTES % 6.9 % (4.4-11.3); NEUTROPHILS # (AUTO) 4.5 (2.1-6.9); NEUTROPHILS % 61.3 % (38.7-80.0); PLATELET COUNT 303 x10e3/uL (140-360); RED CELL DISTRIBUTION WIDTH 15.9 % (11.7-14.4)
[2020-01-25 08:40] LABS: INR 0.88; PROTHROMBIN TIME 12.5 seconds (11.9-14.5)
[2020-01-25 08:43] LABS: ANION GAP 12.7 mmol/L (8-16); BLOOD UREA NITROGEN 26 mg/dL (7-26); BUN/CREATININE RATIO 32 (6-25); CALCIUM 9.8 mg/dL (8.4-10.2); CARBON DIOXIDE 28 mmol/L (22-29); CHLORIDE 102 mmol/L (98-107); CREATININE, SERUM 0.82 mg/dL (0.57-1.11); EST GLOMERULAR FILTRATION RATE > 60 ML/MIN (60-); GLUCOSE 106 mg/dL (74-118); POTASSIUM 3.7 mmol/L (3.5-5.1); SODIUM 139 mmol/L (136-145)
== END 2020-01-25 08:13 | disposition home or self-care (01) ==
LOC: ER 07:46
DX: Z45.2 Encounter for adjustment and management of vascular access device (principal)
CPT/HCPCS: 36415; 80048; 85025; 85610; 99283

== ENCOUNTER 2022-03-12 19:22 | Emergency (ER) | payer MEDICARE, OTHER ==
[~2022-03-12] VITALS: Ht 157.5 cm; Wt 56.2 kg
[2022-03-12] MEDS ORDERED: IBUPROFEN 400 MG TAB PO ONE (19:30)
[2022-03-12 21:50] VITALS: BP 161/71
== END 2022-03-12 21:51 | disposition home or self-care (01) ==
LOC: ER 19:26
DX: R51.9 Headache, unspecified (principal); J32.9 Chronic sinusitis, unspecified; F03.90 Unspecified dementia, unspecified severity, without behavioral disturbance, psychotic disturbance, mood disturbance, and anxiety; I10 Essential (primary) hypertension; E11.9 Type 2 diabetes mellitus without complications; E78.5 Hyperlipidemia, unspecified; H35.30 Unspecified macular degeneration; J45.909 Unspecified asthma, uncomplicated; Z20.822 Contact with and (suspected) exposure to COVID-19
CPT/HCPCS: 70450; 99284; U0002